=== PATIENT | male | born 1990 | race Caucasian/White ===

== ENCOUNTER 2022-05-04 00:14 | Emergency (ER) | payer MEDICAID, OTHER ==
[~2022-05-04] VITALS: Ht 165.1 cm; Wt 87.0 kg
[2022-05-04] MEDS ORDERED: TETANUS, DIPHTHERIA, PERTUSSIS VAC/PF 0.5ML (>10YR OLD) IM ONE (01:30)
[2022-05-04] MEDS ORDERED: IBUP-2029 MT (04:00)
[2022-05-04 04:20] VITALS: BP 128/78
== END 2022-05-04 04:20 | disposition home or self-care (01) ==
LOC: ER 00:14
DX: S01.01XA Laceration without foreign body of scalp, initial encounter (principal); Y08.89XA Assault by other specified means, initial encounter; Y93.89 Activity, other specified; Y92.9 Unspecified place or not applicable; F10.129 Alcohol abuse with intoxication, unspecified; Y90.9 Presence of alcohol in blood, level not specified
CPT/HCPCS: 12013; 90471; 90715; 99284

== ENCOUNTER 2022-05-07 21:04 | Emergency (ER) | payer OTHER ==
[~2022-05-07] VITALS: Ht 177.8 cm; Wt 112.5 kg
[~2022-05-07 21:04] MED LIST: IBUP-2029 MT
[2022-05-08 02:13] VITALS: BP 130/75
== END 2022-05-08 02:14 | disposition home or self-care (01) ==
LOC: ER 21:12
DX: S01.01XD Laceration without foreign body of scalp, subsequent encounter (principal); X58.XXXD Exposure to other specified factors, subsequent encounter
CPT/HCPCS: 99281

== ENCOUNTER 2022-05-09 12:24 | Emergency (ER) | payer MEDICAID, OTHER ==
[~2022-05-09] VITALS: Ht 170.2 cm; Wt 104.0 kg
[2022-05-09 15:18] VITALS: BP 141/86
== END 2022-05-09 15:19 | disposition home or self-care (01) ==
LOC: ER 12:24
DX: Z48.00 Encounter for change or removal of nonsurgical wound dressing (principal)
CPT/HCPCS: 99281

== ENCOUNTER 2022-05-21 19:51 | Emergency (ER) | payer OTHER ==
[~2022-05-21] VITALS: Ht 167.6 cm; Wt 112.9 kg
[2022-05-21] MEDS ORDERED: CEPHALEXIN 250MG CAPSULE PO ONE (22:45)
[2022-05-21] MEDS ORDERED: CEPH500C2 MT (22:47)
[2022-05-21 23:10] VITALS: BP 135/83
== END 2022-05-21 23:11 | disposition home or self-care (01) ==
LOC: ER 20:17
DX: S01.01XD Laceration without foreign body of scalp, subsequent encounter (principal); X58.XXXD Exposure to other specified factors, subsequent encounter
CPT/HCPCS: 99283; Z7610